=== PATIENT | female | born 1990 | race Hispanic/Latino ===

== ENCOUNTER 2018-03-12 15:05 | Emergency (ER) | payer BC, OTHER ==
[2018-03-12] MEDS ORDERED: ORPHENADRINE CITRATE 30 MG/ML ML ONE (16:09)
[2018-03-12] MEDS ORDERED: KETOROLAC TROMETHAMINE 60 MG/2 ML VIAL ONE (16:10)
== END 2018-03-12 16:46 | disposition home or self-care (01) ==
LOC: EDH 15:05
DX: S80.02XA Contusion of left knee, initial encounter (principal); V49.49XA Driver injured in collision with other motor vehicles in traffic accident, initial encounter; Y93.89 Activity, other specified; Y92.89 Other specified places as the place of occurrence of the external cause; Y99.8 Other external cause status
CPT/HCPCS: 73562; 81025; 96372 ×2; 99284; J1885; J2360

== ENCOUNTER 2018-10-18 08:59 | Emergency (ER) | payer BC ==
[2018-10-18] MEDS ORDERED: LIDOCAINE 5% TOPICAL PATCH TP ONE (09:25)
[2018-10-18] MEDS ORDERED: KETOROLAC TROMETHAMINE 60 MG/2 ML VIAL ONE (09:25)
== END 2018-10-18 10:10 | disposition home or self-care (01) ==
LOC: EDH 08:59
DX: M54.5 Low back pain (principal); Z90.49 Acquired absence of other specified parts of digestive tract
CPT/HCPCS: 96372; 99284; J1885

== ENCOUNTER 2019-06-29 14:48 | Emergency (ER) | payer BC | END 2019-06-29 15:25 | disposition home or self-care (01) | LOC: EDH 14:48 | DX: L30.9 Dermatitis, unspecified (principal) | CPT/HCPCS: 99281 ==